=== PATIENT | female | born 1980 | race Hispanic/Latino ===

== ENCOUNTER 2018-03-10 11:13 | Emergency (ER) | payer OTHER ==
[2018-03-10 12:12] LABS: BASOPHILS % (AUTO) 0.6 % (0.0-5.0); EOSINOPHILS % (AUTO) 0.8 % (0.0-8.0); LYMPHOCYTES % (AUTO) 34.4 % (21.0-51.0); MEAN CORPUSCULAR HEMOGLOBIN 30.4 pg (27.0-33.0); MEAN CORPUSCULAR HGB CONC 35.4 g/dL (32.0-36.0); MEAN CORPUSCULAR VOLUME 85.9 fL (79-99); NEUTROPHILS % (AUTO) 57.2 % (40.0-77.0); NUCLEATED RED BLOOD CELLS 0.1 % (0.0-0.19); PLATELET COUNT (AUTO) 241 K/uL (130-400); RED CELL DISTRIBUTION WIDTH 13.6 % (11.0-15.5); WHITE BLOOD COUNT (AUTO) 8.6 K/uL (4.8-10.8)
[2018-03-10 12:19] LABS: CREATININE 0.6 mg/dL (0.5-1.5); POTASSIUM 3.7 mmol/L (3.5-5.1)
[2018-03-10 12:25] LABS: ALBUMIN 3.6 g/dL (3.5-5.0); BILIRUBIN,TOTAL 0.3 mg/dL (0.2-1.0); TOTAL PROTEIN, SERUM 8.2 g/dL (6.0-8.3)
[2018-03-10] MEDS ORDERED: SODIUM CHLORIDE 0.9% 1000ML 1,000 ML IV ONE (13:03)
[2018-03-10] MEDS ORDERED: INSULIN HUMULIN R 100 UNIT/ML 3ML ONE ×2 (13:05→14:43)
[2018-03-10 13:08] LABS: APPEARANCE,URINE Clear (CLEAR); BILIRUBIN,URINE Negative (NEGATIVE); COLOR,URINE Yellow (YELLOW); GLUCOSE, URINE (UA) >=1000 mg/dL (NEGATIVE); HCG,QUAL RESULT NEGATIVE (NEGATIVE); KETONES,URINE Negative (NEGATIVE); LEUKOCYTE ESTERASE ,URINE Negative (NEGATIVE); NITRATE,URINE Negative (NEGATIVE); OCCULT BLOOD,URINE Negative (NEGATIVE); PH,URINE 5.5 (5.0-8.0); PROTEIN,URINE Trace (NEGATIVE); UROBILINOGEN,URINE 0.2 mg/dL (0.2-1.0)
[2018-03-10 13:26] LABS: BACTERIA,URINE Rare /HPF (None Seen); RBC,URINE 0-1 /HPF (0-1); SQUAMOUS EPITHELIAL CELL,UR Rare /HPF (0-2); YEAST,URINE BUDDING Few /HPF (None Seen)
== END 2018-03-10 15:21 | disposition home or self-care (01) ==
LOC: EDH 11:13
DX: G51.0 Bell's palsy (principal); E11.65 Type 2 diabetes mellitus with hyperglycemia; I10 Essential (primary) hypertension; Z91.11 Patient's noncompliance with dietary regimen; Z91.19 Patient's noncompliance with other medical treatment and regimen
CPT/HCPCS: 36415; 70450; 80053; 81001; 81025; 82550; 82948; 84484; 85025; 96361; 96374; 96376; 99285; J1815 ×2; J7030; 93005

== ENCOUNTER 2022-10-11 11:17 | Emergency (ER) | payer BC, OTHER ==
[~2022-10-11] VITALS: Ht 170.2 cm; Wt 95.3 kg
[2022-10-11] MEDS ORDERED: IBUPROFEN 600 MG TABLET PO ONE (13:00)
[2022-10-11 14:54] VITALS: BP 123/78
== END 2022-10-11 15:00 | disposition home or self-care (01) ==
LOC: EDH 11:17
DX: M25.562 Pain in left knee (principal); I10 Essential (primary) hypertension; E11.9 Type 2 diabetes mellitus without complications; E78.00 Pure hypercholesterolemia, unspecified; Z90.49 Acquired absence of other specified parts of digestive tract; Z90.89 Acquired absence of other organs; Z98.890 Other specified postprocedural states; W01.0XXA Fall on same level from slipping, tripping and stumbling without subsequent striking against object, initial encounter; Y93.89 Activity, other specified; Y92.89 Other specified places as the place of occurrence of the external cause; Y99.8 Other external cause status
CPT/HCPCS: 73564

== ENCOUNTER 2024-10-20 15:55 | Observation (INO) | payer BC ==
[~2024-10-20] VITALS: Ht 167.6 cm; Wt 86.6 kg
--- NOTE | 2024-10-20 16:00 | ERN ---
ED Note History of Present Illness Stated Complaint: RLQ ABDOMINAL PAIN Chief Complaint: Abdominal Pain Time Seen by MD: 15:57 Dictation: PATIENT IS A 44-YEAR-OLD FEMALE COMING IN TODAY WITH INTERMITTENT RIGHT LOWER QUADRANT PAIN THAT IS COLICKY ACHY WITH NAUSEA ONSET WAS LAST WEDNESDAY. NO FEVER NO CHILLS NO DIARRHEA NO CHANGE IN URINATION. SAW HER PRIMARY CARE DOCTOR HOME WEDNESDAY WHO WITHOUT THE BENEFIT OF LABS ARE URINALYSIS, TOLD HER TO GO TO THE EMERGENCY ROOM IF THE PAIN GOT WORSE. PATIENT IS A DIABETIC, STATES HER BL OOD SUGAR TODAY WAS 14 Allergies: Coded Allergies: No Known Drug Allergies (Unverified Allergy, Unknown, 10/11/22) Past Medical History Past Medical History: Diabetes-Type II, High Cholesterol, Hypertension Surgical History: Tonsillectomy, Cholecystectomy, History: Not Applicable RN Note Reviewed/Agreed w/PFSH: Yes Review of System Dictation CONSTITUTIONAL: NEGATIVE EXCEPT FOR HPI HEAD/FACE: NEGATIVE EXCEPT FOR HPI EENT: NEGATIVE EXCEPT FOR HPI RESPIRATORY: NEGATIVE EXCEPT FOR HPI GASTROINTESTINAL/ABDOMINAL: NEGATIVE EXCEPT FOR HPI RIGHT LOWER QUADRANT PAIN WITH NAUSEA GENITOURINARY: NEGATIVE EXCEPT FOR HPI MUSCULOSKELETAL: NEGATIVE EXCEPT FOR HPI INTEGUMENTARY: NEGATIVE EXCEPT FOR HPI NEUROLOGICAL/PSYCH: NEGATIVE EXCEPT FOR HPI HEMATOLOGIC/LYMPHATIC: NEGATIVE EXCEPT FOR HPI ALL SYSTEMS NEGATIVE, EXCEPT NOTED ABOVE. 13 POINT REVIEW OF SYSTEMS ASSESSED AND ALL NEGATIVE EXCEPT FOR ABOVE. Initial Vital Sign VS Vital Signs Date Time Temp Pulse Resp B/P (MAP) Pulse Ox O2 Delivery O2 Flow Rate FiO2 10/20/24 15:56 99.3 105 20 131/85 97 Room Air 0 10/20/24 21:12 21 Physical Exam Dictation VITAL SIGNS REVIEWED GENERAL APPEARANCE: ALERT, ORIENTED X 3, MILD ACUTE DISTRESS, WELL DEVELOPED, NOURISHED. OBESE HEAD AND FACE: NON-TRAUMATIC. EYES: PERRL, PINK CONJUNCTIVAS, EYELID NO TRAUMA, ANTERIOR CHAMBER WITH ARCUS SENILIS. EARS: PINNAS INTACT AND NO SIGNS OF TRAUMA OR ERYTHEMA EAR CANALS CLEAR AND NO DISCHARGE TM NO ERYTHEMA NOSE: NO DISCHARGE, NO BLEEDING. OROPHARYNX: MOUTH NORMAL, TONGUE PINK, PHARYNX CLEAR,NO ERYTHEMA, TONSILS NO EXUDATES, NO ABSCESSES NOTED, MUCOUS MEMBRANE MOIST NECK: SUPPLE, NON-TENDER, NO THYROMEGALY, NO MASSES, NO JVD, NO BRUITS BREAST:DEFERRED CHEST:NO TENDERNESS, NO CREPITUS, NO PARADOXICAL MOVEMENT, NO RETRACTIONS LUNGS:CLEAR, WELL-VENTILATED, SYMMETRIC, NO RALES, NO WHEEZING, NO RHONCHI, NO STRIDOR, GOOD BREATH SOUNDS BILATERALLY HEART: REGULAR RATE, REGULAR RHYTHM, NO MURMUR, NO GALLOPS VASCULAR: NO PERIPHERAL EDEMA, ABDOMEN: SOFT, POSITIVE BOWEL SOUNDS, NONDISTENDED, NO GUARDING, MILD RIGHT LOWER QUADRANT PAIN WITHOUT REBOUND PAIN. NEGATIVE CVAT BILATERALLY. RECTAL: DEFERRED GENITAL: DEFERRED NEUROLOGICAL: NORMAL SPEECH, MOTOR FUNCTION INTACT, SENSORY FUNCTION INTACT MUSCULOSKELETAL: NECK NONTENDER, FULL RANGE OF MOTION, BACK NONTENDER, FULL RANGE OF MOTION, EXTREMITIES: NONTENDER, FULL RANGE OF MOTION SKIN: COLOR PINK, DRY, NO TURGOR, NO RASH, NO LACERATIONS, NO ABRASIONS, NO CONTUSIONS. LYMPHATIC: DEFERRED Results (Laboratory/Radiology) Laboratory/Radiology Laboratory Tests Test 10/20/24 16:13 10/20/24 16:14 White Blood Count 17.8 K/uL (4.8-10.8) H Red Blood Count 4.30 MIL/uL (4.00-5.50) Hemoglobin 12.6 g/dL (12.0-16.0) Hematocrit 36.8 % (36-48) Mean Corpuscular Volume 85.6 fL (79-99) Mean Corpuscular Hemoglobin 29.3 pg (27.0-33.0) Mean Corpuscular Hemoglobin Concent 34.2 g/dL (32.0-36.0) Red Cell Distribution Width 13.1 % (11.0-15.5) Platelet Count 343 K/uL (130-400) Mean Platelet Volume 9.1 fL (7.5-10.5) Immature Granulocyte % (Auto) 0.5 % (0-1) Neutrophils (%) (Auto) 83.9 % (40.0-77.0) H Lymphocytes (%) (Auto) 9.6 % (21.0-51.0) L Monocytes (%) (Auto) 5.7 % (3.0-13.0) Eosinophils (%) (Auto) 0.1 % (0.0-8.0) Basophils (%) (Auto) 0.2 % (0.0-5.0) Neutrophils # (Auto) 15.0 K/uL (1.8-7.7) H Lymphocytes # (Auto) 1.7 K/uL (1.0-4.8) Monocytes # (Auto) 1.0 K/uL (0.1-1.0) Eosinophils # (Auto) 0.01 K/uL (0.00-0.70) Basophils # (Auto) 0.03 K/uL (0.00-0.20) Absolute Immature Granulocyte (auto 0.09 K/uL (0-1) Nucleated Red Blood Cells 0.0 % (0.0-0.19) White Cell Morphology Comment See comments Sodium Level 135 mmol/L (136-145) L Potassium Level 3.6 mmol/L (3.5-5.1) Chloride Level 96 mmol/L (101-111) L Carbon Dioxide Level 31 mmol/L (21-32) Blood Urea Nitrogen 10 mg/dL (7-18) Creatinine 0.8 mg/dL (0.5-1.0) Glomerular Filtration Rate Calc 94 mL/min (>90) Random Glucose 303 mg/dL (70-105) H Total Calcium 9.1 mg/dL (8.5-10.1) Lipase 61 U/L (16-77) Urine Color YELLOW (YELLOW) Urine Appearance CLOUDY (CLEAR) H Urine pH 6.0 (5.0-8.0) Urine Specific [place] 1.028 (1.001-1.031) Urine Protein 30 mg/dL (NEGATIVE) H Urine Glucose (UA) >=1000 mg/dL (NEGATIVE) H Urine Ketones NEGATIVE mg/dL (NEGATIVE) Urine Occult Blood LARGE (NEGATIVE) H Urine Nitrate NEGATIVE (NEGATIVE) Urine Bilirubin NEGATIVE mg/dL (NEGATIVE) Urine Urobilinogen 0.2 mg/dL (0.2-1.0) Urine Leukocyte Esterase 500 Young/uL (NEGATIVE) H Urine RBC 6-10 /HPF (0-1) H Urine WBC TNTC /HPF (0-1) H Urine WBC Clumps (Auto) FEW /HPF (0-1) Urine Squamous Epithelial Cells MANY /HPF (0-2) Urine Bacteria RARE /HPF (None Seen) Urine Yeast RARE /HPF (None Seen) Urine HCG, Qualitative NEGATIVE (NEGATIVE) ECHNIQUE: Images are obtained from lung bases to the symphysis pubis following IV contrast, 75 cc Omnipaque 350. FINDINGS: Lung bases are clear. There are no focal liver lesions. Right kidney is partially atrophic, left kidney appears normal.. Spleen and pancreas appear unremarkable. The gallbladder appears normal as well. The appendix is prominent at 10 to 11 mm. There is mild periappendiceal inflammation and there is hyperemic wall. These findings appear consistent with early acute uncomplicated appendicitis. There is no evidence of abscess or perforation.. This includes normal appearance of the appendix There is no evidence of free fluid or intraperitoneal air. There are no focal fluid collections. Aorta and retroperitoneum appear normal as do pelvic soft tissue structures. The anterior abdominal wall is intact. Osseous structures appear unremarkable. IMPRESSION: 1. Findings consistent with uncomplicated the acute appendicitis as described above. Labs Reviewed?: Yes ED Course ED Course Orders Procedure Category Date Status Time Cbc With Differential LAB 10/20/24 Complete 15:58 ,Urine Test LAB 10/20/24 Complete 15:58 Urinalysis Profile LAB 10/20/24 Complete 15:58 Lipase LAB 10/20/24 Complete 15:58 Basic Metabolic Panel LAB 10/20/24 Complete 15:58 0.9%Nacl 1000ml (Ns PHA 10/20/24 Complete 1000ml) 16:00 Ketorolac PHA 10/20/24 Complete Tromethamine 30mg/Ml 16:00 Ondansetron 4mg Inj PHA 10/20/24 Complete (Zofran 4mg Inj) 16:00 Culture Urine DEREK 10/20/24 In Process 16:45 Blood Cult DEREK 10/20/24 In Process 17:29 Zosyn 3.375gm+Ns 50ml PHA 10/20/24 In Process (Zosyn 3.375gm+Ns 17:30 Ct Abdomen/Pelvis CT 10/20/24 Resulted W/Contrast 17:29 Ondansetron 4mg Inj PHA 10/20/24 Complete (Zofran 4mg Inj) 20:58 Ketorolac PHA 10/20/24 Complete Tromethamine 30mg/Ml 20:59 Iohexol (Omnipaque) PHA 10/20/24 Complete 21:26 Current Medications Medications (Trade) Dose Ordered Sig/Gwendolyn Route PRN Reason Start Time Stop Time Status Last Admin Dose Admin Iohexol (Omnipaque) 75 ml STK-MED ONCE IV 10/20/24 21:26 10/20/24 21:27 DC Ketorolac Tromethamine (toRADol) 30 mg ONCE ONCE IVP 10/20/24 16:00 10/20/24 16:02 DC 10/20/24 21:11 Ketorolac Tromethamine (toRADol) 30 mg STK-MED ONCE .ROUTE 10/20/24 20:59 10/20/24 20:59 DC Ondansetron HCl (zoFRAN 4MG INJ) 4 mg ONCE ONCE IVP 10/20/24 16:00 10/20/24 16:02 DC 10/20/24 21:11 Ondansetron HCl (zoFRAN 4MG INJ) 4 mg STK-MED ONCE .ROUTE 10/20/24 20:58 10/20/24 20:59 DC Piperacillin Sod/ Tazobactam Sod (Zosyn 3.375gm+NS 50ml) 3.375 gm ONCE IVPB 10/20/24 17:30 10/20/24 23:59 10/20/24 21:11 Sodium Chloride 1,000 ml @ 0 mls/hr ONCE ONCE IV 10/20/24 16:00 10/20/24 16:02 DC 10/20/24 21:11 Vital Signs Date Time Temp Pulse Resp B/P (MAP) Pulse Ox O2 Delivery O2 Flow Rate FiO2 10/20/24 21:12 98.1 96 20 122/75 98 Room Air* 0 21 10/20/24 15:56 99.3 105 20 131/85 97 Room Air 0 Two thousand two hundred, patient is aware she has a acute appendicitis without perforation or abscess. Zosyn has been administered as we speak she has no pain at this time and she agrees to stay for surgery. Medical Decision Making MDM MDM: Differential diagnosis: Appendicitis/ectopic /ovarian//UTI/hernia Rationale: Tests considered and ordered secondary to shared decision making include: labs, and radiology Previous outside records reviewed: Old ER visits. Reviewed Risk of complication and/or morbidity or mortality of patient management: Moderate Medications-Per medication reconciliation see nurse's notes Need for hospitalization: Patient does meet criteria for hospitalization. Yes she will need surgery for acute appendicitis Need for emergency major/minor surgery: Yes, appendectomy There are no social concerns with this patient. Prescription drug management Prescriptions will include symptomatic care Patient's prior external medical records from other ER visits were reviewed by me as indicated. Prior testing and results from previous visits were reviewed. Prior tests were taken into account with medical decision making and resource utilization, independent historian/historians were used to obtain complete medical history. I independently interpreted the test that were performed, results were reviewed by me and considered findings on radiology if ordered. Medical management and examination interpretation discussions were had by me with other qualified healthcare professionals as indicated for the patient's care. DX & DISP Disposition: Inpatient Departure Impression: Primary Impression: Acute appendicitis Additional Impressions: Uncontrolled diabetes mellitus, Dehydration Condition: Stable Referrals: NONE (PCP) Time of Disposition: 22:02 I have reviewed the case, and I agree with, Diagnosis and Plan KAITLYNN DOMINGO NP Oct 20, 2024 16:00
[2024-10-20 16:22] LABS: BASOPHILS # (AUTO) 0.03 K/uL (0.00-0.20); BASOPHILS % (AUTO) 0.2 % (0.0-5.0); EOSINOPHILS # (AUTO) 0.01 K/uL (0.00-0.70); EOSINOPHILS % (AUTO) 0.1 % (0.0-8.0); HEMATOCRIT 36.8 % (36-48); IMMATURE GRANULOCYTE ABSOLUTE 0.09 K/uL (0-1); LYMPHOCYTES # (AUTO) 1.7 K/uL (1.0-4.8); LYMPHOCYTES % (AUTO) 9.6 % (21.0-51.0); MEAN CORPUSCULAR HEMOGLOBIN 29.3 pg (27.0-33.0); MEAN CORPUSCULAR HGB CONC 34.2 g/dL (32.0-36.0); MEAN CORPUSCULAR VOLUME 85.6 fL (79-99); MONOCYTES % (AUTO) 5.7 % (3.0-13.0); NEUTROPHILS % (AUTO) 83.9 % (40.0-77.0); PLATELET COUNT (AUTO) 343 K/uL (130-400); RED CELL DISTRIBUTION WIDTH 13.1 % (11.0-15.5); WHITE BLOOD COUNT (AUTO) 17.8 K/uL (4.8-10.8)
[2024-10-20 16:35] LABS: CREATININE 0.8 mg/dL (0.5-1.0); POTASSIUM 3.6 mmol/L (3.5-5.1)
[2024-10-20 16:43] LABS: HCG,QUALITATIVE URINE NEGATIVE (NEGATIVE)
[2024-10-20 16:45] LABS: ADD UA MICROSCOPIC YES; APPEARANCE,URINE CLOUDY (CLEAR); BILIRUBIN,URINE NEGATIVE (NEGATIVE); COLOR,URINE YELLOW (YELLOW); GLUCOSE, URINE (UA) >=1000 mg/dL (NEGATIVE); KETONES,URINE NEGATIVE (NEGATIVE); LEUKOCYTE ESTERASE ,URINE 500 Leu/uL (NEGATIVE); NITRATE,URINE NEGATIVE (NEGATIVE); OCCULT BLOOD,URINE LARGE (NEGATIVE); PROTEIN,URINE 30 mg/dL (NEGATIVE); UROBILINOGEN,URINE 0.2 mg/dL (0.2-1.0)
[2024-10-20 16:48] LABS: BACTERIA,URINE RARE /HPF (None Seen); MUCUS,URINE RARE LPF (None Seen); SQUAMOUS EPITHELIAL CELL,UR MANY /HPF (0-2); WBC CLUMP FEW /HPF (0-1); WBC,URINE TNTC /HPF (0-1); YEAST,URINE BUDDING RARE /HPF (None Seen)
--- NOTE | 2024-10-20 17:54 | NUR ---
PATIENT IN ER LOBBY, PENDING IV SITE & CONSENT FOR CT EXAM.
[2024-10-20] MEDS: 0.9%NACL 1000ML 1,000 ML IV ONE (21:11)
[2024-10-20] MEDS: ketOROlac 30MG VIAL (30MG/ML) IVP ONE (21:11)
[2024-10-20] MEDS: ondanSETRON 4MG INJ IVP ONE (21:11)
[2024-10-20] MEDS: ZOSYN 3.375GM +NS 50ML IVPB SCH (21:11)
[2024-10-20] MEDS: ondanSETRON 4MG INJ ONE (21:11)
[2024-10-20] MEDS: ketOROlac 30MG VIAL (30MG/ML) ONE (21:11)
[2024-10-20] MEDS ORDERED: IOHEXOL-350 75 ML VIAL IV ONE (21:26)
--- NOTE | 2024-10-20 21:51 | HMCIMG ---
CT ABDOMEN/PELVIS W/CONTRAST REASON: RIGHT LOWER QUADRANT PAIN TENDERNESS. COMPARISON: None. TECHNIQUE: Images are obtained from lung bases to the symphysis pubis following IV contrast, 75 cc Omnipaque 350. FINDINGS: Lung bases are clear. There are no focal liver lesions. Right kidney is partially atrophic, left kidney appears normal.. Spleen and pancreas appear unremarkable. The gallbladder appears normal as well. The appendix is prominent at 10 to 11 mm. There is mild periappendiceal inflammation and there is hyperemic wall. These findings appear consistent with early acute uncomplicated appendicitis. There is no evidence of abscess or perforation.. This includes normal appearance of the appendix There is no evidence of free fluid or intraperitoneal air. There are no focal fluid collections. Aorta and retroperitoneum appear normal as do pelvic soft tissue structures. The anterior abdominal wall is intact. Osseous structures appear unremarkable. IMPRESSION: 1. Findings consistent with uncomplicated the acute appendicitis as described above. CT was performed with one or more following dose reduction techniques: automated exposure control, adjustment of the mA and kv according to patient's size, or use of a iterative reconstruction technique.
[2024-10-20] MEDS ORDERED: SEMA1PEN3 SQ (22:38)
--- NOTE | 2024-10-20 22:38 | NUR ---
MED REC DONE AT THIS TIME.
--- NOTE | 2024-10-20 23:13 | HP ---
History of Present Illness Reason for Visit: abdominal pain History of Present Illness Ms. Stockton is a 44-year-old female that was seen and examined today on 10/20/2024. Patient is a good historian and personal health. Patient states that she came to the emergency department with a chief complaint of abdominal pain. Onset was one week ago. Location is to right lower quadrant. Duration is on and off. Character is described as contractions. Symptoms are aggravated with walking and palpation. There was no alleviating factors. Patient reports associated nausea and vomiting x2 episodes yesterday. Today in the emergency department WBCs 17.8, left shift neutrophils 83.9%, glucose 303 mg/dL, urinalysis positive for leukocyte esterase and WBCs too many to count under high-powered microscopy. Emergency room physician recommended that patient be admitted with a diagnosis of appendicitis. CT of abdomen and pelvis shows findings consistent with uncomplicated acute appendicitis. Past Medical History ADDITIONAL PAST MEDICAL HISTORY: [Diabetes mellitius type2, hypertension] SOCIAL HISTORY: [[Negative for smoking, alcohol use. Patient admits to daily marijuana use. Patient lives with her two sons. Patient has good access to health care through her insurance. Patient is employed full-time at a [employer] center. Patient denies difficulty paying her bills. Patient is typically independent of all her ADLs.] SURGICAL HISTORY: Cholecystectomy, tonsillectomy, section x2 Review of Systems General: No Fever, No Chills, No Night Sweats, No Fatigue, No Malaise, No Appetite, No Other HEENT: No Head Aches, No Visual Changes, No Eye Pain, No Ear Pain, No Dysphasia, No Sinus Congestion, No Post Nasal Drip, No Sore Throat, No Other Pulmonary: No Dyspnea, No Cough, No Pleuritic Chest Pain, No Other Cardiovascular: No: Chest Pain, Palpitations, Orthopnea, Paroxysmal Noc. Dyspnea, Edema, Lt Headedness, Other Gastrointestinal: Nausea, Vomiting, Abdominal Pain; No: Diarrhea, Constipation, Melena, Hematochezia, Other Genitourinary: No Dysuria, No Frequency, No Incontinence, No Hematuria, No Retention, No Other Musculoskeletal: No: other, neck pain, shoulder pain, arm pain, back pain, hand pain, leg pain, foot pain Skin: No Urticaria, No Rash, No Other Neurological: No: Weakness, Numbness, Incoordination, Change in speech, Confusion, Seizures, Other Allergies: Coded Allergies: No Known Drug Allergies (Unverified Allergy, Unknown, 10/11/22) Scheduled Semaglutide (Ozempic), 0.5 MG SQ QWEEK, (Reported) Exam Vital Signs Vital Signs Date Time Temp Pulse Resp B/P (MAP) Pulse Ox O2 Delivery O2 Flow Rate FiO2 10/20/24 22:22 98.1 90 18 127/71 98 Room Air* 0 21 General Appearance: Alert, Oriented X3, Cooperative, No acute distress HEENT: EOMI, Mucous membr. moist/pink Respiratory: Clear to auscultation, Normal air movement, NL respiratory effort Cardiovascular: Regular rate, Regular rhythm, Normal S1, Normal S2 Abdominal: Normal bowel sounds, Soft, Other (Right lower quadrant tenderness) Extremities: No edema Skin: No significant lesion Neuro: Normal speech, Strength at 5/5 X4 ext, Sensation intact, Cranial nerves 3-12 NL Psych/Mental Status: Mental status NL, Mood NL, Thoughts/Content NL Assessment/Plan ASSESSMENT: [ Appendicitis, POA Leukocytosis, POA Uncontrolled Diabetes mellitius type2, POA Urinary tract infection, POA Hypertension] PLAN: [ Admit patient to medical-surgical floor as inpatient status. Patient will be followed by General surgery Service, Dr. Barillas Keep patient NPO IV fluid maintenance therapy lactated Ringer's at 75 mL/HR Check preprocedure labs, CBC, BMP, magnesium, phosphorus, PTT, UA, type and screen, EKG, CXR As needed analgesia with morphine Check blood culture, follow up with the results Empiric antibiotic therapy with Zosyn Check hemoglobin A1c in a.m. Glucometer checks a.c. and HS 1800 ADA diet once patient is no longer NPO Humulin R sliding scale 1. Consider resuming home medications once medications are reconciled inpatient is no longer NPO. For now, Hydralazine 10 mg IV every 4 hours for systolic blood pressure greater than 160 mmHg GI prophylaxis, famotidine 20 mg IV once daily. DVT prophylaxis, Feliz's and SCDs ADVANCED CARE PLANNING 1. Which of the following were discussed? Hospice Care - Yes Therapeutic options - Yes Advance Directives - Yes -patient states she does not have any advance directives in place at this time, however her sister Nataly Stockton can make decisions for her if she becomes unable. Other discussions - patient wishes to remain a full code at this time 2. Discussed with who? Patient 3. Voluntary nature of this service was explained to the patient? Yes 4. Amount of time spent - ___ 16 minutes ____ 5. Reviewed by Physician? (if this service was performed by NPP) Yes This document was generated in part using voice recognition software, occasional wrong word or sound alike substitutions may have occurred due to the inherent limitations of voice recognition software. Read the chart carefully and recogni ze using context, where the substitutions have occurred. Although every effort was made to edit the content, exhibition specialist and typing errors may occur ATTESTATION BY PHYSICIAN I have seen and examined the patient. I reviewed the documentation, medical de cision making, and treatment plan as noted by the mid-level provider above. I agree with the findings and plan of care. ESTRELLITA DELUNA [facility] Oct 20, 2024 23:13
[2024-10-20] MEDS ORDERED: ondanSETRON 4MG INJ IV PRN (23:30)
[2024-10-20] MEDS ORDERED: morPHINE 4 MG SYG IV PRN (23:30)
[2024-10-20] MEDS ORDERED: hydrALAZine 20MG/ML VIAL IV PRN (23:30)
[2024-10-20 23:55] VITALS: BP 123/80; PULSE 84; RESP 18; TEMP 97.8
[2024-10-21 00:30] VITALS: O2SAT 98
[2024-10-21] MEDS: ZOSYN 3.375GM +NS 50ML IV SCH (00:34)
[2024-10-21 04:00] VITALS: BP 135/74; PULSE 74; RESP 18; TEMP 98.1
[2024-10-21 05:10] LABS: BASOPHILS # (AUTO) 0.03 K/uL (0.00-0.20); BASOPHILS % (AUTO) 0.2 % (0.0-5.0); EOSINOPHILS # (AUTO) 0.08 K/uL (0.00-0.70); EOSINOPHILS % (AUTO) 0.6 % (0.0-8.0); HEMATOCRIT 32.9 % (36-48); IMMATURE GRANULOCYTE ABSOLUTE 0.07 K/uL (0-1); LYMPHOCYTES # (AUTO) 2.5 K/uL (1.0-4.8); LYMPHOCYTES % (AUTO) 18.1 % (21.0-51.0); MEAN CORPUSCULAR HEMOGLOBIN 29.6 pg (27.0-33.0); MEAN CORPUSCULAR VOLUME 86.8 fL (79-99); MONOCYTES # (AUTO) 1.1 K/uL (0.1-1.0); MONOCYTES % (AUTO) 8.1 % (3.0-13.0); NEUTROPHILS # (AUTO) 9.8 K/uL (1.8-7.7); NEUTROPHILS % (AUTO) 72.5 % (40.0-77.0); PLATELET COUNT (AUTO) 271 K/uL (130-400); RED BLOOD CELL COUNT(AUTO) 3.79 MIL/uL (4.00-5.50); RED CELL DISTRIBUTION WIDTH 12.9 % (11.0-15.5); WHITE BLOOD COUNT (AUTO) 13.5 K/uL (4.8-10.8)
[2024-10-21 05:28] LABS: INR 1.06 (0.85-1.15); PROTHROMBIN TIME 11.4 SEC (9.6-11.6)
[2024-10-21 05:29] LABS: PARTIAL THROMBOPLASTIN TIME 30.5 SEC (26.3-35.5)
[2024-10-21 05:34] LABS: CREATININE 0.7 mg/dL (0.5-1.0); MAGNESIUM 1.7 mg/dL (1.80-2.40); PHOSPHORUS 3.5 mg/dL (2.5-4.9); POTASSIUM 3.5 mmol/L (3.5-5.1)
[2024-10-21 05:35] LABS: HEMOGLOBIN A1C 9.4 % (4.0-6.0)
[2024-10-21] MEDS: INSULIN humuLIN R 100 UNIT/ML 3ML SQ SCH (06:41)
[2024-10-21 08:03] VITALS: BP 124/82; PULSE 84; RESP 18; TEMP 98.3
[2024-10-21] MEDS ORDERED: PoTASSium chloRIDE 20MEQ/100ML 100 ML IV SCH (09:00)
[2024-10-21] MEDS: FAMOTIDINE 20MG VIAL IV SCH (09:25)
[2024-10-21 09:26] VITALS: O2SAT 98
[2024-10-21] MEDS: MAGNESIUM 2GM PREMIX 50ML 50 ML IV SCH (09:26)
[2024-10-21 11:31] VITALS: BP 128/80; PULSE 81; RESP 18; TEMP 98
[2024-10-21] MEDS ORDERED: IOHEXOL-350 75 ML VIAL IV ONE (11:55)
--- NOTE | 2024-10-21 11:57 | CONS ---
CONSULT NOTE: Consulting physician: Dr Luna Consulting service: General surgery Reason for consultation: Early appendicitis History of present illness: This is a 44-year-old female with no significant medical history that has been consulted to surgery for a one week history of abdominal pain with recent imaging concerning for possible early appendicitis. Patient reports waxing waning presentation of pain. At time of exam patient with no abdominal pain. WBCs on admission elevated with no 13.5. Patient reporting no other concerns at time of exam other than 100. Patient is stable. Patient on IV fluids and IV antibiotics. Medical history: Diabetes mellitius type2, hypertension SOCIAL HISTORY: Negative for smoking, alcohol use. Patient admits to daily marijuana use. Patient lives with her two sons. Patient has good access to health care through her insurance. Patient is employed full-time at a [employer] center. Patient denies difficulty paying her bills. Patient is typically independent of all her ADLs. SURGICAL HISTORY: Cholecystectomy, tonsillectomy, section x2 Review of systems: General: No Fever, No Chills, No Night Sweats, No Fatigue, No Malaise, No Appetite, No Other HEENT: No Head Aches, No Visual Changes, No Eye Pain, No Ear Pain, No Dysphasia, No Sinus Congestion, No Post Nasal Drip, No Sore Throat, No Other Pulmonary: No Dyspnea, No Cough, No Pleuritic Chest Pain, No Other Cardiovascular: No: Chest Pain, Palpitations, Orthopnea, Paroxysmal No Dyspnea, Edema, Lt Headedness, Other Gastrointestinal: No: Nausea, Vomiting, Diarrhea, Constipation, Melena, Hematochezia, Other Genitourinary: No Dysuria, No Frequency, No Incontinence, No Hematuria, No Retention, No Other Musculoskeletal: No: other, neck pain, shoulder pain, arm pain, back pain, hand pain, leg pain, foot pain Skin: No Urticaria, No Rash, No Other Neurological: No: Weakness, Numbness, Incoordination, Change in speech, Confusion, Seizures, Other Physical exam: General: Awake alert and oriented Heart: Regular rate and rhythm} Lungs: [Clear to auscultation no distress Abdomen: [Soft, nontender, nondistended Assessment: This is a 44-year-old female with concerns of early appendicitis Plan: After physical exam with no significant abdominal pain plan will be for repeat CT of abdomen and pelvis with oral IV contrast to assess appendix No immediate plans for surgical intervention Patient to continue with the IV fluids and IV antibiotics If imaging unremarkable patient to be allowed diet Dr. Barillas to be updated in patient's status and surgical team to follow patient ELVIS MOURA Jr. Oct 21, 2024 11:57
[2024-10-21] MEDS ORDERED: DIATR MEGLU/DIATRIZOATE SODIUM 30 ML BOTTLE ONE (12:04)
--- NOTE | 2024-10-21 12:10 | NUR ---
PATIENT PREPPING WITH ORAL CONTRAST FOR CT EXAM.
--- NOTE | 2024-10-21 12:52 | PN ---
[facility] PROGRESS NOTE Date of Service: Oct 21, 2024 Time of Service: 12:[address] Beatty SUBJECTIVE: [ 10/20 Ms. Stockton is a 44-year-old female that was seen and examined today on 10/20/2024. Patient is a good historian and personal health. Patient states that she came to the emergency department with a chief complaint of abdominal pain. Onset was one week ago. Location is to right lower quadrant. Duration is on and off. Character is described as contractions. Symptoms are aggravated with walking and palpation. There was no alleviating factors. Patient reports associated nausea and vomiting x2 episodes yesterday. Today in the emergency department WBCs 17.8, left shift neutrophils 83.9%, glucose 303 mg/dL, urinalysis positive for leukocyte esterase and WBCs too many to count under high-powered microscopy. Emergency room physician recommended that patient be admitted with a diagnosis of appendicitis. CT of abdomen and pelvis shows findings consistent with uncomplicated acute appendicitis. 10/21 patient was seen by nurse practitioner and physician during rounding in room 303 comfortably lying in the bed. Patient was evaluated by the surgeon and at this moment they recommend CT abdomen/pelvis with oral and IV contrast. If image will be unremarkable patient will be put on diet. At this moment we are waiting for test to be performed. We will continue to monitor patient in the meantime. A.m. labs. Continue Zosyn antibiotic today WBC is 13.5 compared to yesterday 17.8] REVIEW OF SYSTEMS CONSTITUTIONAL: Denies fevers, chills, or night sweats. No unintentional weight loss reported. NEUROLOGICAL: Denies headache, amaurosis fugax, motor weakness, sensory defici t, vertigo/spinning sensation, gait abnormalities, or tremors. ENT: No hearing loss, otalgia, otorrhea, rhinitis, rhinorrhea, hoarseness, or sore throat. CARDIOVASCULAR: Denies any exertional angina, dyspnea on exertion, orthopnea, paroxysmal nocturnal dyspnea, palpitations, life-threatening arrhythmias, claudication. PULMONARY: Denies any shortness of breath, cough, phlegm/sputum, hemoptysis, pleuritic chest pain. SLEEP: Denies morning headaches, daytime somnolence or napping. Denies difficulty falling asleep, staying asleep, waking from sleep. Denies knowledge of snoring. GASTROINTESTINAL: Denies any type of dysphagia to either liquids or solids. Denies nausea, vomiting, pyrosis, early satiety, abdominal pain, diarrhea, constipation, or changes in stool consistency or caliber. Denies coffee-ground emesis, hematemesis, hematochezia, or melanotic stools. GENITOURINARY: Denies frequency, urgency, nocturia, hematuria or incontinence (Storage/Irritative symptoms.) Low urinary stream, straining to void, urinary intermittency or hesitancy, splitting of the voiding stream, terminal dribbling. ENDOCRINOLOGIC: Denies polyuria, polydipsia, polyphagia or heat/cold intolerances. HEMATOLOGIC: Denies thrombophilia/previous clots, or coagulopathy/bleeding disorders. ONCOLOGIC: Denies personal history of malignancy. DERMATOLOGIC: Denies rashes or pruritus. PSYCHIATRIC: Denies any suicidal or homicidal ideation. Denies hallucinations. PHYSICAL EXAM GENERAL APPEARANCE: The patient is awake, alert, and oriented, in no acute cardiopulmonary distress. NEUROLOGICAL: Cranial nerves II-XII grossly intact. Motor is 5/5 in bilateral upper and lower extremities proximal to distal. No sensory deficits. HEENT: Face is symmetric. Pupils are equal and reactive. Extraocular movements are intact. NECK: Supple. No JVD. No thyromegaly. No submental, submandibular, pre- /postauricular, occipital or supraclavicular lymphadenopathy. CHEST: Normal chest expansion. No Telemetry. LUNGS: Absence of any rales, rhonchi or any wheezing. CARDIOVASCULAR: Regular. S1 and S2 normal. No appreciable rubs, murmurs or gallops. ABDOMEN: Soft, nontender, and nondistended. There is no rebound, voluntary guarding, or rigidity. : Deferred. No Nascimento. EXTREMITIES: Non-edematous and not cyanotic. No clubbing. Good capillary refill. SKIN: No skin breakdown. Vital Signs (last 8hr) Date Time Temp Pulse Resp B/P (MAP) Pulse Ox O2 Delivery O2 Flow Rate FiO2 10/21/24 11:31 98.1 81 18 128/80 93 Room Air 10/21/24 08:03 98.2 84 18 124/82 98 Room Air LABS: Laboratory: Test 10/21/24 04:42 10/20/24 16:14 10/20/24 16:13 Range/Units White Blood Count 13.5 H 4.8-10.8 K/uL Red Blood Count 3.79 L 4.00-5.50 MIL/uL Hemoglobin 11.2 L 12.0-16.0 g/dL Hematocrit 32.9 L 36-48 % Mean Corpuscular Volume 86.8 79-99 fL Mean Corpuscular Hemoglobin 29.6 27.0-33.0 pg Mean Corpuscular Hemoglobin Concent 34.0 32.0-36.0 g/dL Red Cell Distribution Width 12.9 11.0-15.5 % Platelet Count 271 130-400 K/uL Mean Platelet Volume 9.2 7.5-10.5 fL Immature Granulocyte % (Auto) 0.5 0-1 % Neutrophils (%) (Auto) 72.5 40.0-77.0 % Lymphocytes (%) (Auto) 18.1 L 21.0-51.0 % Monocytes (%) (Auto) 8.1 3.0-13.0 % Eosinophils (%) (Auto) 0.6 0.0-8.0 % Basophils (%) (Auto) 0.2 0.0-5.0 % Neutrophils # (Auto) 9.8 H 1.8-7.7 K/uL Lymphocytes # (Auto) 2.5 1.0-4.8 K/uL Monocytes # (Auto) 1.1 H 0.1-1.0 K/uL Eosinophils # (Auto) 0.08 0.00-0.70 K/uL Basophils # (Auto) 0.03 0.00-0.20 K/uL Absolute Immature Granulocyte (auto 0.07 0-1 K/uL Nucleated Red Blood Cells 0.0 0.0-0.19 % Prothrombin Time 11.4 9.6-11.6 SEC Prothromb Time International Ratio 1.06 0.85-1.15 Activated Partial Thromboplast Time 30.5 26.3-35.5 SEC Sodium Level 138 136-145 mmol/L Potassium Level 3.5 3.5-5.1 mmol/L Chloride Level 102 101-111 mmol/L Carbon Dioxide Level 30 21-32 mmol/L Blood Urea Nitrogen 10 7-18 mg/dL Creatinine 0.7 0.5-1.0 mg/dL Glomerular Filtration Rate Calc 111 >90 mL/min Random Glucose 217 H 70-105 mg/dL Hemoglobin A1c 9.4 H 4.0-6.0 % Estimated Average Glucose (eAG) 223 H 70-126 mg/dL Total Calcium 8.6 8.5-10.1 mg/dL Phosphorus Level 3.5 2.5-4.9 mg/dL Magnesium Level 1.70 L 1.80-2.40 mg/dL Urine Color YELLOW YELLOW Urine Appearance CLOUDY H CLEAR Urine pH 6.0 5.0-8.0 Urine Specific [place] 1.028 1.001-1.031 Urine Protein 30 H NEGATIVE mg/dL Urine Glucose (UA) >=1000 H NEGATIVE mg/dL Urine Ketones NEGATIVE NEGATIVE mg/dL Urine Occult Blood LARGE H NEGATIVE Urine Nitrate NEGATIVE NEGATIVE Urine Bilirubin NEGATIVE NEGATIVE mg/dL Urine Urobilinogen 0.2 0.2-1.0 mg/dL Urine Leukocyte Esterase 500 H NEGATIVE Young/uL Urine RBC 6-10 H 0-1 /HPF Urine WBC TNTC H 0-1 /HPF Urine WBC Clumps (Auto) FEW 0-1 /HPF Urine Squamous Epithelial Cells MANY 0-2 /HPF Urine Bacteria RARE None Seen /HPF Urine Yeast RARE None Seen /HPF Urine HCG, Qualitative NEGATIVE NEGATIVE White Cell Morphology Comment See comments Lipase 61 16-77 U/L Current Medications Medications (Trade) Dose Ordered Sig/Gwendolyn Route PRN Reason Start Time Stop Time Status Last Admin Dose Admin Famotidine (Pepcid 20mg Vial) 20 mg DAILY IV 10/21/24 09:00 11/20/24 08:59 10/21/24 09:25 20 MG Hydralazine HCl (APRESOLine 20MG INJ) 10 mg Q6H PRN IV For:SBP above 160;DBP above 90 10/20/24 23:30 11/19/24 23:29 Insulin Human Regular (humuLIN R 100 UNIT/ML 3ML) INSULIN SLIDING SCAL... ACHS SQ 10/21/24 07:30 11/20/24 07:29 Magnesium Sulfate 50 ml @ 0 mls/hr PROTOCOL IV 10/21/24 09:00 11/20/24 08:59 10/21/24 09:26 25 MLS/HR Morphine Sulfate (morPHINE 4MG SYG) 4 mg Q4H PRN IV SEVERE PAIN (7-10) 10/20/24 23:30 10/27/24 23:29 Ondansetron HCl (zoFRAN 4MG INJ) 4 mg Q6H PRN IV NAUSEA/VOMITING 10/20/24 23:30 11/19/24 23:29 Piperacillin Sod/ Tazobactam Sod (Zosyn 3.375gm+NS 50ml) 3.375 gm ONCE IVPB 10/20/24 17:30 10/20/24 23:59 DC 10/20/24 21:11 3.375 GM Piperacillin Sod/ Tazobactam Sod (Zosyn 3.375gm+NS 50ml) 3.375 gm Q8H IV 10/21/24 01:30 10/31/24 01:29 10/21/24 09:26 3.375 GM Potassium Chloride 100 ml @ 50 mls/hr PROTOCOL IV 10/21/24 09:00 11/20/24 08:59 DIAGNOSTICS / RADIOLOGY: [ ] ASSESSMENT: [ Acute Appendicitis, POA Leukocytosis, POA Uncontrolled Diabetes mellitius type2, with hypoglycemia POA Acute complicated cystitis POA Uncontrolled hypertension POA Daily marijuana use POA History of cholecystectomy History of tonsillectomy] PLAN: [ Admit to: Medical-surgical floor Consults: Surgeon Antibiotics: Zosyn Tests: CT abdomen/pelvis NEURO: Minimize central acting medications as possible. Fall Precautions. Well lighted room through the day and minimize interruptions through the night to prevent acute delirium. PULMONARY: Supplemental 02 as needed BiPAP as necessary, for respiratory distress Titrate Fio2 to keep Spo2 > or = 90% DuoNebs and CPT as needed IS hourly while awake for pulmonary hygiene Out of bed to chair as tolerated VAP Bundle Maintain aspiration precautions at all times CARDIOVASCULAR: Follow hemodynamics. Vital signs per facility protocol GI & NUTRITION: Continue nutritional support Aspirations precautions Prokinetic agents and laxatives as needed KIDNEYS & ELECTROLYTES: Strict monitoring of intake and output Daily weights Avoid nephrotoxic agents Monitor electrolytes and replace as needed Goal urine output of 30mL/hr or 0.5mL/kg/hr Medications to be dosed according to renal function. Avoid contrast if possible ENDOCRINE: Maintain blood glucose between 100-180 at all times. Insulin sliding scale for blood glucose management Hypoglycemia and hyperglycemia protocol in place INFECTIOUS DISEASE: Trend temperature, WBC and procalcitonin level Follow cultures, deescalate antibiotics as soon as possible. Panculture if new onset fever HEMATOLOGY & COAGULATION: Monitor H&H. Keep Hgb > 7 Transfuse 1 unit of PRBC for Hgb < 7 Transfuse 1 pack of platelets of platelets < 20, 000 Watch for any signs and symptoms of bleeding SKIN: Pressure ulcer prevention per facility protocol Specialty mattress as needed Treatment plan discussed with patient and family at the bedside Medications to be reconciled once obtained by patient and/or family and available to be reconciled in computer p.r.n. medication for pain nausea and vomiting Questions were answered We will continue to monitor the patient closely It Quality Analyst for disposition Rehab: PT/OT GI: PPI DVT: SCD's Code Status: Full Resuscitation Disposition: TBD Prognosis: Guarded] ATTESTATION BY PHYSICIAN I have seen and examined the patient. I reviewed the documentation, medical decision making, and treatment plan as noted by the mid-level provider above. I agree with the findings and plan of care. MD VIKKI Beatty [facility] Oct 21, 2024 12:52
--- NOTE | 2024-10-21 14:12 | NUR ---
INITIAL ASSESSMENT Patient lives with adult children. She has no home services. DME: glucometer (no insulin). Patient is able to complete ADLs independently and drives. 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 PCP is Dr Seb Lucio. Pharmacy is [facility]. Patient has no issues with having stable usp to live in or transportation. She and children have lived in their home for some time. No concerns voiced regarding not having enough food in the home. No safety concerns voiced regarding returning home. DCP is home. Addendum: 10/21/24 at 1421 by STEPAN VELAZQUEZ Amended: Links added.
--- NOTE | 2024-10-21 15:09 | HMCIMG ---
Exam Type: CT ABDOMEN/PELVIS W/O CONTRAST Clinical Information: FOR APPENDICITIS ORAL CONTRAST ONLY Comparison: None CT Dose Index (CTDI): 10.20 mGy Dose Length Product (DLP): 530.00 total mGy-cm PROTOCOL: Routine noncontrast helical scanning of the abdomen and pelvis was performed at 5mm collimation. Findings: No evidence of nephro or ureterolithiasis is found. No hydronephrosis or ureteral dilatation is seen. Right kidney is atrophic. The lung bases are clear. The stomach is unremarkable. It shows no wall thickening. No gross ulceration is seen. It is not overly distended. There are no surrounding inflammatory changes. No wall lesions are identified to suggest cancer. The spleen is unremarkable. It is not enlarged. The pancreas shows normal anatomy. It is not fatty replaced. It shows no lesions. The pancreatic duct is not dilated. The gallbladder is unremarkable. It shows no cholelithiasis. The gallbladder wall is normal in thickness. There is no pericholecystic fluid. The is no acute or chronic inflammation noted. The adrenal glands are unremarkable. There is no enlargement. No lesions are noted. The liver is unremarkable. It shows no focal masses. The appendix is unremarkable. It shows no evidence of inflammation. No appendicolith is seen. The small bowel is unremarkable. There is no evidence of dilatation to suggest obstruction. No evidence of adynamic ileus is seen. There is no small bowel wall thickening to suggest enteritis. The colon is unremarkable. The urinary bladder is unremarkable. There is no wall thickening to suggest tumor or inflammation. There are no intraluminal calculi. There are no diverticula. There is no evidence of chronic bladder outlet obstruction. There is no evidence of urinary bladder distention to suggest urinary retention. The other pelvic structures are unremarkable. The bony and vascular structures are unremarkable for the patient's age. IMPRESSION: Normal appendix. No acute pathology. This study was performed using dose reduction techniques to include automated exposure control and/or adjustment of the mA and/or kV according to patient size.
[2024-10-21] MEDS ORDERED: LEVO-70 PO (16:38)
--- NOTE | 2024-10-21 16:41 | DS ---
Discharge Summary Hospital Course Summary: DATE OF ADMISSION:[10/20/2024] DATE OF DISCHARGE:[10/21/2024] DISPOSITION:[Home] CONDITION:[Medically stable] CONSULTANTS:[Surgeon] FOLLOW UP APPOINTMENTS:[PCP 2 to 3 days. Surgeon as needed] PROCEDURES:[None] IMAGING: report attached to summary MICROBIOLOGY: report attached to summary ACTIVITY:[Independent] HOME MEDICATIONS: see med recc NEW MEDICATIONS:[See med rec] EMERGENCY INSTRUCTIONS: The patient was instructed to present to the nearest Emergency departmentr or call 911 once their symptoms will return or worsen Equipment Detailer(s): Ms. Stockton is a 44-year-old female that was seen and examined today on 10/20/2024. Patient is a good historian and personal health. Patient states that she came to the emergency department with a chief complaint of abdominal pain. Onset was one week ago. Location is to right lower quadrant. Duration is on and off. Character is described as contractions. Symptoms are aggravated with walking and palpation. There was no alleviating factors. Patient reports associated nausea and vomiting x2 episodes yesterday. Today in the emergency department WBCs 17.8, left shift neutrophils 83.9%, glucose 303 mg/dL, urinalysis positive for leukocyte esterase and WBCs too many to count under high-powered microscopy. Emergency room physician recommended that patient be admitted with a diagnosis of appendicitis. CT of abdomen and pelvis shows findings consistent with uncomplicated acute appendicitis. Throughout the hospitalization CT abdomen/pelvis was performed with the oral IV contrast and was unremarkable. Patient was evaluated by the surgeon and was cleared to be discharged home. Patient is tolerating food. Patient denies any nausea vomiting, chest pain, shortness of breath. Follow-up with PCP in 2 to 3 days. Follow up with the surgeon as needed. Assessment/Plan: ASSESSMENT: [ Acute Appendicitis, POA Leukocytosis, POA Uncontrolled Diabetes mellitius type2, with hypoglycemia POA Acute complicated cystitis POA Uncontrolled hypertension POA Daily marijuana use POA History of cholecystectomy History of tonsillectomy] Home Medications: Reported Medications Semaglutide (Ozempic) 1 Mg/0.75 Ml (4 Mg/3 Ml) Pen.injctr, 0.5 MG SQ QWEEK for 30 Days, #3 ML 0 Refills 10/20/24 Time spent arranging discharge: 31-60 minutes ATTESTATION BY PHYSICIAN I have seen and examined the patient. I reviewed the documentation, medical decision making, and treatment plan as noted by the mid-level provider above. I agree with the findings and plan of care. REAL Mcnamara MD [facility] Oct 21, 2024 16:41
[2024-10-21 16:57] VITALS: BP 136/81; PULSE 87; RESP 18; TEMP 98.2
--- NOTE | 2024-10-21 19:30 | NUR ---
DISCHARGE PT PIV DC'D PT VERBALIZED UNDERSTANDING OF DISCHARGE INSTRUCTIONS PT GATHERED AND TOOK ALL BELONGINGS PT HAD NO FURTHER QUESTION AT TIME OF DISCHARGE
== END 2024-10-21 19:45 | disposition home or self-care (01) ==
LOC: EDH 15:55 → EDHIP 22:34 → INTOOBSV 22:34 → 3AH 23:55
PROVIDERS: ADMIT Internal Medicine; ATTEND Internal Medicine
DX: K35.80 Unspecified acute appendicitis (principal); E86.0 Dehydration; E11.65 Type 2 diabetes mellitus with hyperglycemia; D72.829 Elevated white blood cell count, unspecified; N30.00 Acute cystitis without hematuria; R11.2 Nausea with vomiting, unspecified; I10 Essential (primary) hypertension; E78.00 Pure hypercholesterolemia, unspecified; F12.90 Cannabis use, unspecified, uncomplicated; Z90.89 Acquired absence of other organs; Z90.49 Acquired absence of other specified parts of digestive tract; Z98.890 Other specified postprocedural states; Z79.899 Other long term (current) drug therapy
CPT/HCPCS: 96365; 96375 ×2; 99285; 80048 ×2; 83690; 85025 ×2; 87040 ×2; 87086 ×2; 87186; 81001; 81025; 36415 ×2; 74177; 96366; 96368; 83036; 83735; 84100; 85610; 85730; 86850; 86900; 86901; 74176; J2405; J1885; J2543 ×3; Q9967; G0378 ×2; J3475; Q9963; J3490